=== PATIENT | female | born 1995 | race Caucasian/White ===

== ENCOUNTER 2018-10-04 10:23 | Emergency (ER) | payer MEDICAID ==
[~2018-10-04] VITALS: Ht 160 cm; Wt 77.3 kg
[2018-10-04 10:35] VITALS: BP 122/79; Ht 160 cm; Wt 77.3 kg
[2018-10-04] MEDS ORDERED: VOLTAREN75 MG PO (11:14)
[2018-10-04] MEDS ORDERED: AMOXICILLIN500 M1 PO (11:14)
== END 2018-10-04 11:34 | disposition home or self-care (01) ==
LOC: D.ER 10:23
DX: K04.7 Periapical abscess without sinus (principal); K08.89 Other specified disorders of teeth and supporting structures

== ENCOUNTER 2018-10-22 10:46 | Emergency (ER) | payer MEDICAID ==
[~2018-10-22] VITALS: Ht 160 cm; Wt 78.2 kg
[~2018-10-22 10:46] MED LIST: AMOXICILLIN500 M1 PO; VOLTAREN75 MG PO
[2018-10-22 10:55] VITALS: BP 131/81; Ht 160 cm; Wt 78.2 kg
== END 2018-10-22 12:27 | disposition left against medical advice (07) ==
LOC: D.ER 10:46
DX: J02.9 Acute pharyngitis, unspecified (principal); R05 Cough; R09.89 Other specified symptoms and signs involving the circulatory and respiratory systems

== ENCOUNTER 2018-12-25 15:10 | Emergency (ER) | payer MEDICAID ==
[~2018-12-25] VITALS: Ht 160 cm; Wt 77.3 kg
[2018-12-25 15:13] VITALS: Ht 160 cm; Wt 77.3 kg
[2018-12-25] MEDS ORDERED: MACROBID100 MG PO (15:17)
[2018-12-25 15:39] LABS: APPEARANCE CLEAR (CLEAR); BILIRUBIN NEGATIVE (NEGATIVE); COLOR YELLOW (YELLOW); GLUCOSE NEGATIVE (NEGATIVE); KETONE SMALL mg/dL (NEGATIVE); NITRITE NEGATIVE (NEGATIVE); PROTEIN NEGATIVE (NEGATIVE); SPECIFIC GRAVITY 1.025 (1.005-1.020); UROBILINOGEN NORMAL (NORMAL)
[2018-12-25 15:41] LABS: EPITHELIAL CELLS 0-5 /hpf (0-5); RED CELLS - URINE 0-5 /hpf (0-5)
[2018-12-25 15:43] LABS: BACTERIA FEW /hpf (NONE SEEN)
[2018-12-25 15:45] LABS: HCG URINE NEGATIVE (NEGATIVE)
[2018-12-25 17:25] LABS: BASOPHILS 0.2 % (0-2); EOSINOPHILS 0.8 % (0-7); HEMATOCRIT 40.1 % (36.0-48.0); HEMOGLOBIN 13.8 g/dL (12-16); IMMATURE GRANULOCYTES 0.3 % (0-5); LYMPHOCYTES 20.7 % (15-50); MCH 29.2 pg (26.0-34.0); MCHC 34.4 g/dL (31.0-37.0); MCV 84.8 fL (80.0-100.0); MEAN PLATELET VOLUME 9.9 fL (7.4-10.4); MONOCYTES 7.8 % (2-11); NEUTROPHILS 70.2 % (40-80); PLATELET COUNT 350 10x3/uL (130-400); RBC 4.73 10x6/uL (4.00-5.40); WBC 14.3 10x3/uL (4.8-10.8)
[2018-12-25] MEDS ORDERED: ZOFRAN8 MG PO (18:29)
[2018-12-25] MEDS ORDERED: TORADOL10 MG PO (18:29)
[2018-12-25 18:40] LABS: BILIRUBIN - TOTAL 0.43 mg/dL (0.2-1.3); CALCIUM 9.1 mg/dL (8.5-10.1); CARBON DIOXIDE 19.9 mmol/L (21.0-32.0); CREATININE - SERUM 1.1 mg/dL (0.6-1.3); POTASSIUM - SERUM 3.9 mmol/L (3.5-5.1); PROTEIN - SERUM 8.5 g/dL (6.4-8.2)
[2018-12-25 20:05] VITALS: BP 113/73
== END 2018-12-25 20:05 | disposition home or self-care (01) ==
LOC: D.ER 15:10
PROVIDERS: Family Medicine
DX: N20.0 Calculus of kidney (principal); N39.0 Urinary tract infection, site not specified

== ENCOUNTER 2019-01-04 12:50 | Emergency (ER) | payer MEDICAID ==
[~2019-01-04] VITALS: Ht 160 cm; Wt 81.8 kg
[~2019-01-04 12:50] MED LIST changes: +MACROBID100 MG PO; +TORADOL10 MG PO; +ZOFRAN8 MG PO
[2019-01-04 13:26] VITALS: Ht 160 cm; Wt 81.8 kg
[2019-01-04 14:48] LABS: APPEARANCE CLEAR (CLEAR); BILIRUBIN NEGATIVE (NEGATIVE); COLOR STRAW (YELLOW); GLUCOSE NEGATIVE (NEGATIVE); HCG URINE NEGATIVE (NEGATIVE); KETONE NEGATIVE (NEGATIVE); NITRITE NEGATIVE (NEGATIVE); PROTEIN NEGATIVE (NEGATIVE); SPECIFIC GRAVITY 1.005 (1.005-1.020); UROBILINOGEN NORMAL (NORMAL)
[2019-01-04 14:49] LABS: RED CELLS - URINE OCC /hpf (0-5); WHITE CELLS - URINE 0-5 /hpf (0-5)
[2019-01-04 14:50] LABS: BACTERIA FEW /hpf (NONE SEEN); EPITHELIAL CELLS 0-5 /hpf (0-5)
[2019-01-04 15:29] LABS: BASOPHILS 0.2 % (0-2); EOSINOPHILS 1.6 % (0-7); HEMATOCRIT 38.3 % (36.0-48.0); HEMOGLOBIN 13.2 g/dL (12-16); IMMATURE GRANULOCYTES 0.3 % (0-5); LYMPHOCYTES 34.2 % (15-50); MCH 29.4 pg (26.0-34.0); MCHC 34.5 g/dL (31.0-37.0); MCV 85.3 fL (80.0-100.0); MEAN PLATELET VOLUME 9.6 fL (7.4-10.4); MONOCYTES 8.4 % (2-11); NEUTROPHILS 55.3 % (40-80); PLATELET COUNT 307 10x3/uL (130-400); RBC 4.49 10x6/uL (4.00-5.40); RDW 13.2 % (11.5-14.5); WBC 11.7 10x3/uL (4.8-10.8)
[2019-01-04 15:42] LABS: ALBUMIN 3.7 g/dL (3.4-5.0); ANION GAP 18.1 mmol/L (8-16); BILIRUBIN - TOTAL 0.25 mg/dL (0.2-1.3); CALCIUM 9.6 mg/dL (8.5-10.1); CARBON DIOXIDE 20.6 mmol/L (21.0-32.0); POTASSIUM - SERUM 3.7 mmol/L (3.5-5.1)
[2019-01-04] MEDS ORDERED: ZOFRAN8 MG PO (18:44)
[2019-01-04] MEDS ORDERED: TORADOL10 MG PO (18:44)
[2019-01-04 18:59] VITALS: BP 125/68
== END 2019-01-04 19:00 | disposition home or self-care (01) ==
LOC: D.ER 12:50
PROVIDERS: Emergency Medicine
DX: R10.9 Unspecified abdominal pain (principal); R11.2 Nausea with vomiting, unspecified

== ENCOUNTER → 2019-01-17 18:55 | Outpatient (CLI) | payer MEDICAID ==
[2019-01-04 13:26] VITALS: BMI 31.9
== END | disposition home or self-care (01) ==
LOC: D.LABREF 18:55
PROVIDERS: ATTEND Urology
DX: D72.829 Elevated white blood cell count, unspecified (principal)

== ENCOUNTER → 2019-01-26 11:28 | Outpatient (CLI) | payer MEDICAID ==
[2019-01-04 13:26] VITALS: BMI 31.9
== END | disposition home or self-care (01) ==
LOC: D.CT 01-23 11:00
PROVIDERS: ATTEND Urology
DX: N20.0 Calculus of kidney (principal)

== ENCOUNTER 2019-07-29 09:51 | Emergency (ER) | payer MEDICAID ==
[~2019-07-29] VITALS: Ht 160 cm; Wt 76.4 kg
[2019-07-29 09:57] VITALS: BP 150/89; Ht 160 cm; Wt 76.4 kg
[2019-07-29] MEDS ORDERED: AMOXICILLIN500 M1 PO (09:58)
[2019-07-29] MEDS ORDERED: PHENERGAN6.25 MG/5 PO (09:58)
[2019-07-29] MEDS ORDERED: TESSALON PERLE100 MG PO (10:31)
== END 2019-07-29 10:59 | disposition home or self-care (01) ==
LOC: D.ER 09:51
DX: H66.91 Otitis media, unspecified, right ear (principal); J04.0 Acute laryngitis

== ENCOUNTER 2020-05-17 19:34 | Emergency (ER) | payer MEDICAID ==
[~2020-05-17] VITALS: Ht 160 cm; Wt 84.6 kg
[~2020-05-17 19:34] MED LIST changes: +PHENERGAN6.25 MG/5 PO; +TESSALON PERLE100 MG PO
[2020-05-17 19:40] VITALS: Ht 160 cm; Wt 84.6 kg
[2020-05-17 20:05] LABS: BASOPHILS 0.2 % (0-2); EOSINOPHILS 1.4 % (0-7); HEMATOCRIT 30.4 % (36.0-48.0); HEMOGLOBIN 9.7 g/dL (12-16); IMMATURE GRANULOCYTES 1.1 % (0-5); LYMPHOCYTES 20.8 % (15-50); MCH 28.1 pg (26.0-34.0); MCHC 31.9 g/dL (31.0-37.0); MCV 88.1 fL (80.0-100.0); MEAN PLATELET VOLUME 9.4 fL (7.4-10.4); MONOCYTES 8.4 % (2-11); NEUTROPHILS 68.1 % (40-80); RBC 3.45 10x6/uL (4.00-5.40); RDW 14.1 % (11.5-14.5); WBC 9.4 10x3/uL (4.8-10.8)
[2020-05-17 20:10] LABS: PLATELET COUNT 244 10x3/uL (130-400)
[2020-05-17 20:30] LABS: CALC OSMOLALITY 272 mosm/kg (275-300); CALCIUM 8.5 mg/dL (8.5-10.1); CARBON DIOXIDE 22.3 mmol/L (21.0-32.0); CHLORIDE - SERUM 105 mmol/L (98-107); CREATININE - SERUM 0.6 mg/dL (0.6-1.3); GLUCOSE 88 mg/dL (74-106); POTASSIUM - SERUM 4.2 mmol/L (3.5-5.1); SODIUM 138 mmol/L (136-145); UREA NITROGEN 7 mg/dL (7-18); eGFR NON AFRICAN AMERICAN > 90 mL/min (90-120)
[2020-05-17 20:36] LABS: ALBUMIN 2.9 g/dL (3.4-5.0); ALKALINE PHOSPHATASE 75 U/L (30-120); ALT (SGPT) 11 U/L (10-68); BILIRUBIN - TOTAL 0.12 mg/dL (0.2-1.3); C-REACTIVE PROTEIN 1.3 mg/dL (0.0-0.9); PROTEIN - SERUM 6.5 g/dL (6.4-8.2); THYROID STIMULATING HORMONE 2.41 uIU/mL (0.36-3.74)
[2020-05-17 21:15] LABS: UDS - AMPHET NEGATIVE QUAL (NEGATIVE); UDS - BARB NEGATIVE QUAL (NEGATIVE); UDS - BENZO NEGATIVE QUAL (NEGATIVE); UDS - COCAINE NEGATIVE QUAL (NEGATIVE); UDS - OPIATE NEGATIVE QUAL (NEGATIVE); UDS - PCP NEGATIVE QUAL (NEGATIVE); UDS - THC NEGATIVE QUAL (NEGATIVE)
[2020-05-17 21:26] LABS: BILIRUBIN NEGATIVE (NEGATIVE); KETONE NEGATIVE (NEGATIVE); NITRITE NEGATIVE (NEGATIVE); UROBILINOGEN NORMAL (NORMAL)
[2020-05-17] MEDS ORDERED: AMOXICILLIN500 M1 PO (21:29)
[2020-05-17 21:41] VITALS: BP 146/83
== END 2020-05-17 21:41 | disposition home or self-care (01) ==
LOC: D.ER 19:34
PROVIDERS: Family Medicine
DX: O26.893 Other specified pregnancy related conditions, third trimester (principal); R10.9 Unspecified abdominal pain; Z3A.32 32 weeks gestation of pregnancy

== ENCOUNTER 2020-05-17 22:21 | Observation (INO) | payer MEDICAID ==
[2020-05-17 19:40] VITALS: BMI 33.0
== END 2020-05-18 00:25 | disposition home or self-care (01) ==
LOC: D.LDO 22:21 → D.LD 23:52 → OBSVTIME 23:55 → D.LD 05-18 00:25
PROVIDERS: ADMIT Student in an Organized Health Care Education/Training Program; ATTEND Student in an Organized Health Care Education/Training Program
DX: O26.893 Other specified pregnancy related conditions, third trimester (principal); K04.7 Periapical abscess without sinus; Z3A.29 29 weeks gestation of pregnancy

== ENCOUNTER 2020-05-22 13:55 | Outpatient (CLI) | payer MEDICAID ==
[2020-05-22 16:34] LABS: BASOPHILS 0.2 % (0-2); EOSINOPHILS 1.3 % (0-7); HEMATOCRIT 31.4 % (36.0-48.0); HEMOGLOBIN 9.9 g/dL (12-16); IMMATURE GRANULOCYTES 1.8 % (0-5); LYMPHOCYTES 22.8 % (15-50); MCH 28.3 pg (26.0-34.0); MCHC 31.5 g/dL (31.0-37.0); MCV 89.7 fL (80.0-100.0); MEAN PLATELET VOLUME 9.5 fL (7.4-10.4); NEUTROPHILS 65.9 % (40-80); PLATELET COUNT 233 10x3/uL (130-400); RDW 14.5 % (11.5-14.5); WBC 12.1 10x3/uL (4.8-10.8)
[2020-05-22 16:52] LABS: ALBUMIN 2.9 g/dL (3.4-5.0); ALKALINE PHOSPHATASE 74 U/L (30-120); ALT (SGPT) 15 U/L (10-68); BILIRUBIN - TOTAL 0.13 mg/dL (0.2-1.3); CALC OSMOLALITY 272 mosm/kg (275-300); CALCIUM 8.8 mg/dL (8.5-10.1); CARBON DIOXIDE 19.9 mmol/L (21.0-32.0); CHLORIDE - SERUM 105 mmol/L (98-107); CREATININE - SERUM 0.6 mg/dL (0.6-1.3); GLUCOSE 76 mg/dL (74-106); POTASSIUM - SERUM 4.1 mmol/L (3.5-5.1); PROTEIN - SERUM 6.5 g/dL (6.4-8.2); SODIUM 138 mmol/L (136-145); UREA NITROGEN 8 mg/dL (7-18); eGFR NON AFRICAN AMERICAN > 90 mL/min (90-120)
== END 2020-05-22 18:00 | disposition home or self-care (01) ==
LOC: D.LDO 13:55
PROVIDERS: ATTEND Student in an Organized Health Care Education/Training Program
DX: O26.899 Other specified pregnancy related conditions, unspecified trimester (principal); R42 Dizziness and giddiness